=== PATIENT | female | born 1980 ===

== ENCOUNTER 2023-03-14 22:02 | Emergency (ER) | payer SELFPAY ==
[~2023-03-14] VITALS: Ht 160 cm; Wt 58.1 kg
[2023-03-14 22:05] VITALS: BP 150/98
== END 2023-03-14 22:57 | disposition home or self-care (01) ==
LOC: ER 22:02
DX: Z02.89 Encounter for other administrative examinations (principal); F17.200 Nicotine dependence, unspecified, uncomplicated
CPT/HCPCS: 99282